=== PATIENT | male | born 1995 | race African-American/Black ===

== ENCOUNTER 2016-07-07 23:06 | Emergency (ER) | payer OTHER ==
[~2016-07-07 23:06] MED LIST: ALBUTEROL17 GM INH; CONCERTA PO; MOTRIN600 M1 PO; NO MEDICATIONS; PHENERGAN PO; QVAR7.3 GM INH; SEROQUEL PO; TYLENOL #3 PO; ZANTAC PO
== END 2016-07-08 02:00 | disposition left against medical advice (07) ==
LOC: CED 23:06
DX: Z53.21 Procedure and treatment not carried out due to patient leaving prior to being seen by health care provider (principal)